=== PATIENT | male | born 1955 ===

== ENCOUNTER 2018-02-19 15:46 | Emergency (ER) | payer SELFPAY ==
[2018-02-19 15:56] VITALS: O2SAT 97
[2018-02-19] MEDS ORDERED: Tdap Vaccine 0.5 ml Vial (10-64 yrs) IM ONE ×2 (16:35→16:59)
[2018-02-19] MEDS ORDERED: Lidocaine 2% w Epi 1:200,000 Pf Inj INJ ONE (16:35)
[2018-02-19] MEDS ORDERED: Bacitracin 500 Units/gm Oint Foilpak UD TOP ONE (16:35)
--- NOTE | 2018-02-19 16:35 | C.PDOC ---
History Of Present Illness 63-year-old male,presents to the emergency department with complaints of laceration to dorsum of right hand sustained accidentally while cleaning a kitchen knife prior to arrival. Patient denies any numbness/weakness, nausea. Time Seen by Provider: 02/19/18 16:21 Chief Complaint (Nursing): Abnormal Skin Integrity History Per: Patient History/Exam Limitations: no limitations Onset/Duration Of Symptoms: Other (prior to arrival) Current Symptoms Are (Timing): Still Present Location Of Injury: Right: Hand (dorsum) Past Medical History Reviewed: Historical Data, Nursing Documentation, Vital Signs Vital Signs: Last Vital Signs Temp 98.8 F 02/19/18 17:35 Pulse 71 02/19/18 17:35 Resp 16 02/19/18 17:35 BP 138/88 02/19/18 17:35 Pulse Ox 97 02/19/18 21:19 Family History: States: No Known Family Hx - Social History Hx Alcohol Use: No Hx Substance Use: No - Immunization History Hx Tetanus Toxoid Vaccination: No Hx Influenza Vaccination: No Hx Pneumococcal Vaccination: Yes Review Of Systems Gastrointestinal: Negative for: Nausea, Vomiting Musculoskeletal: Positive for: Hand Pain (laceration) Neurological: Negative for: Weakness, Numbness Physical Exam - Physical Exam Appears: Non-toxic, No Acute Distress Skin: Normal Color, Warm, Dry, No Rash, Other (there is a 4cm linear laceration to dorsal aspect of right hand. No foreign bodies) Head: Atraumatic, Normacephalic Eye(s): bilateral: Normal Inspection Nose: Normal Oral Mucosa: Moist Lips: Normal Appearing Neck: Normal ROM Respiratory: No Accessory Muscle Use Extremity: Normal ROM, No Deformity, No Swelling, Other (Patient is able to make a fist of right hand and able to extend all fingers fully.) Pulses: Left Radial: Normal, Right Radial: Normal Neurological/Psych: Oriented x3, Normal Speech, Normal Motor (able to make fist and extend all fingers), Normal Sensation ED Course And Treatment O2 Sat by Pulse Oximetry: 97 Laceration - Laceration Repair Right hand Wound Length (In cm): 4 Description Of Wound: Linear Anesthesia: Lidocaine 1% Wound Examination: Irrigated With Saline (high pressure irrigation), No FB With Wound Exploration, No Tendon Injury With Wound Exploration Wound Closure: Suture (interrupted) Suture Technique And Material Used: Nylon (4-0, 2 sutures), Vicryl (4-o, 2 sutures) Wound Complexity: Intermediate Disposition Counseled Patient/Family Regarding: Studies Performed, Diagnosis, Need For Followup, Rx Given - Disposition Referrals: Renny Jameson MD [Staff Provider] - [facility] [Outside] [facility] [Outside] Disposition: HOME/ ROUTINE Disposition Time: 17:35 Condition: STABLE Additional Instructions: FOLLOW UP WITH HAND SURGEON NEXT WEEK. WOUND CHECK IN 2 DAYS, SUTURE REMOVAL IN 10-14 DAYS. IF WOUND REDNESS, SWELLING OR DISCHARGE DEVELOP RETURN TO ED. Prescriptions: Bacitracin 1 apful EXT TID #30 g Instructions: Laceration Repair With Stitches (DC) Forms: [employer] (Lebanese), Gen Discharge Inst Vietnamese, [employer] (Vietnamese) Print Language: HUNGARIAN - Clinical Impression Clinical Impression: Laceration of hand - Scribe Statement The provider has reviewed the documentation as recorded by the Scribe (Hayley Galaviz) All medical record entries made by the Scribe were at my direction and personally dictated by me. I have reviewed the chart and agree that the record accurately reflects my personal performance of the history, physical exam, medical decision making, and the department course for this patient. I have also personally directed, reviewed, and agree with the discharge instructions and disposition.
[2018-02-19] MEDS ORDERED: Lidocaine 2% w Epi 1:100,000 Inj IJ ONE (16:59)
[2018-02-19] MEDS ORDERED: Bacitracin 500 Units/gm Oint Foilpak UD ONE (17:00)
[2018-02-19 17:36] VITALS: BP 138/88; PULSE 71; RESP 16; TEMP 98.8
== END 2018-02-19 17:45 | disposition home or self-care (01) ==
LOC: C.ER 15:46
DX: S61.411A Laceration without foreign body of right hand, initial encounter (principal); W26.0XXA Contact with knife, initial encounter; Z23 Encounter for immunization

== ENCOUNTER 2018-02-21 10:55 | Emergency (ER) | payer SELFPAY ==
[2018-02-21 11:04] VITALS: BP 113/72; PULSE 71; RESP 18; TEMP 98.5; O2SAT 96
[2018-02-21] MEDS ORDERED: Bacitracin 500 Units/gm Oint Foilpak UD TOP ONE (11:36)
--- NOTE | 2018-02-21 11:52 | C.PDOC ---
History Of Present Illness The patient reports that he is here for wound check. The patient reports that he cut the right hand 2 days ago. Patient denies any pain or fever. Time Seen by Provider: 02/21/18 11:18 Chief Complaint (Nursing): Wound Check History Per: Patient History/Exam Limitations: no limitations Current Symptoms Are (Timing): Better Quality Of Symptoms: denies: Painful, Swollen, Draining Pain Scale Rating Of: 1 Past Medical History Reviewed: Historical Data, Nursing Documentation, Vital Signs Vital Signs: Last Vital Signs Temp 98.5 F 02/21/18 11:02 Pulse 71 02/21/18 11:02 Resp 18 02/21/18 11:02 BP 113/72 02/21/18 11:02 Pulse Ox 96 02/21/18 12:12 Family History: States: No Known Family Hx - Social History Hx Alcohol Use: No Hx Substance Use: No - Immunization History Hx Tetanus Toxoid Vaccination: Yes Hx Influenza Vaccination: No Hx Pneumococcal Vaccination: No Review Of Systems Constitutional: Negative for: Fever, Weakness Musculoskeletal: Negative for: Hand Pain Skin: Negative for: Rash Neurological: Negative for: Weakness, Numbness Physical Exam - Physical Exam Appears: Non-toxic, No Acute Distress Skin: Normal Color, Warm Head: Atraumatic, Normacephalic Eye(s): bilateral: Normal Inspection Oral Mucosa: Moist Neck: Normal ROM Chest: Symmetrical Extremity: Normal ROM (of the right hand), Capillary Refill (< 2 sec), Other ((+ ) healing sutured wound to the dorsal aspect of the right hand. No erythema, swelling, drainage, or tenderness. ) Extremity: Bilateral: Normal Color And Temperature Pulses: Left Radial: Normal, Right Radial: Normal Neurological/Psych: Oriented x3, Normal Speech, Normal Motor, Normal Sensation Gait: Steady ED Course And Treatment O2 Sat by Pulse Oximetry: 96 (on RA) Pulse Ox Interpretation: Normal Progress Note: Wound was cleansed, bacitracin applied, and sterile dressing applied. Disposition - Disposition Referrals: at [facility] [Outside] Disposition: HOME/ ROUTINE Disposition Time: 12:08 Condition: GOOD Additional Instructions: Clean the wound twice a day with soap and water. Apply bacitracin. Sutures to be removed within 10 days. Return if worsened Prescriptions: Bacitracin Ointment [Bacitracin] 30 gm TOP BID #1 tube Instructions: Wound Care (DC) Forms: [employer] (Djiboutian) - Clinical Impression Clinical Impression: Visit for wound check
[2018-02-21] MEDS ORDERED: Bacitracin 500 Units/gm Oint Foilpak UD ONE (11:56)
== END 2018-02-21 12:28 | disposition home or self-care (01) ==
LOC: C.ER 10:55
DX: Z48.00 Encounter for change or removal of nonsurgical wound dressing (principal)

== ENCOUNTER 2018-03-02 11:20 | Emergency (ER) | payer SELFPAY ==
[2018-03-02 11:25] VITALS: BMI 25.0
[2018-03-02 11:27] VITALS: BP 128/83; PULSE 68; RESP 20; TEMP 97.4; O2SAT 99
--- NOTE | 2018-03-02 11:36 | C.PDOC ---
History Of Present Illness 63 yo male come in for scheduled wound check and suture removal after laceration to Right hand was repaired here in ED on 02/19/18. At present time, pt denies any active complaints, denies fever, chills, increase pain over Right hand wound, redness, discharges, denies weakness, sensory or vascular deficits to Right hand. Ambulate to Ed for evaluation, not in any apparent distress. Time Seen by Provider: 03/02/18 11:28 Chief Complaint (Nursing): Suture/Staple Removal History Per: Patient Past Medical History Reviewed: Historical Data, Nursing Documentation, Vital Signs Vital Signs: Last Vital Signs Temp 97.4 F L 03/02/18 11:25 Pulse 68 03/02/18 11:25 Resp 20 03/02/18 11:25 BP 128/83 03/02/18 11:25 Pulse Ox 99 03/02/18 11:36 Family History: States: No Known Family Hx - Social History Hx Alcohol Use: No Hx Substance Use: No - Immunization History Hx Tetanus Toxoid Vaccination: Yes Hx Influenza Vaccination: No Hx Pneumococcal Vaccination: No Review Of Systems Except As Marked, All Systems Reviewed And Found Negative. Constitutional: Negative for: Fever, Chills Musculoskeletal: Negative for: Hand Pain Skin: Positive for: Lesions Neurological: Negative for: Weakness, Numbness Physical Exam - Physical Exam Appears: Well, Non-toxic, No Acute Distress Skin: Normal Color, Warm, Other (Right hand: laceration in web between 1st-2nd fingers closed with sutures#4, clean, dry, intact. No cellulitis.) Extremity: Normal ROM, No Tenderness, Capillary Refill (less than 2sec to Right hand), No Deformity, No Swelling Neurological/Psych: Oriented x3, Normal Speech, Normal Motor, Normal Sensation, Normal Reflexes ED Course And Treatment O2 Sat by Pulse Oximetry: 99 Progress Note: On re-eval, pt is afebrile, hemodynamicaly stable. Right hand: laceration appears clean, dry, intact, no edmea, no clelulitis. Sutures#4 removed without difficulty. FAROM of Right hand, no neurovascular deficits. Pt advised on wound care. ref. to f/u with PMD in 2-3 days as need for wound r- check. return if any new changes. Disposition Counseled Patient/Family Regarding: Diagnosis, Need For Followup - Disposition Referrals: [facility] [Outside] Disposition: HOME/ ROUTINE Disposition Time: 11:34 Condition: STABLE Additional Instructions: Keep wound dry for 3-4 days Follow up with PMD as need for further evaluation of wound return if any worsening or new changes. Instructions: Stitches Removal Forms: [employer] (Wolof) Print Language: YORUBA - Clinical Impression Clinical Impression: Removal of suture
== END 2018-03-02 11:57 | disposition home or self-care (01) ==
LOC: C.ER 11:20
DX: Z48.02 Encounter for removal of sutures (principal)